=== PATIENT | female | born 1970 | race Two or more races ===

== ENCOUNTER → 2023-09-05 | Emergency (ER) | payer OTHER ==
[~2023-09-05] VITALS: Ht 160 cm; Wt 74.4 kg
[~2023-09-05] MED LIST: ASA325 MG; ATIVAN0.5 MG; BUDEPRION SR150 MG; CIPRO500 MG; GARLIC1000 MG; LEVOTHROID25 MCG; METOPROLOL SUC100 MG; NEURONTIN600 M1 PO; PARLODEL2.5 MG; PENICILLIN; VITAMIN D50000 UNIT
== END | disposition home or self-care (01) ==
LOC: ER 17:41
DX: S00.83XA Contusion of other part of head, initial encounter (principal); S80.02XA Contusion of left knee, initial encounter; W19.XXXA Unspecified fall, initial encounter; Y93.89 Activity, other specified; Y92.018 Other place in single-family (private) house as the place of occurrence of the external cause; Y99.9 Unspecified external cause status; Z88.2 Allergy status to sulfonamides; Z88.8 Allergy status to other drugs, medicaments and biological substances

== ENCOUNTER 2024-07-25 17:28 | Emergency (ER) | payer OTHER ==
[~2024-07-25] VITALS: Ht 160 cm; Wt 65.3 kg
[2024-07-25] MEDS ORDERED: OZEMPIC2 MG/0.75 SQ (17:35)
== END 2024-07-25 18:58 | disposition home or self-care (01) ==
LOC: ER 17:31
DX: N18.4 Chronic kidney disease, stage 4 (severe) (principal); Z88.2 Allergy status to sulfonamides; Z88.8 Allergy status to other drugs, medicaments and biological substances